=== PATIENT | female | born 1980 | race Hispanic/Latino ===

== ENCOUNTER 2019-01-17 06:45 | Observation (INO) | payer OTHER ==
[2019-01-15 10:49] LABS: BASOPHILS % 0.8 % (0.0-1.0); EOSINOPHILS # (AUTO) 0.2 (0.0-0.4); EOSINOPHILS % 3.8 % (0.0-6.0); HEMATOCRIT 36.4 % (34.2-44.1); HEMOGLOBIN 12.2 g/dL (12.0-16.0); LYMPHOCYTES # (AUTO) 2.1 (1.0-3.2); MEAN CORPUSCULAR HEMOGLOBIN 32.2 pg (28-32); MEAN CORPUSCULAR HGB CONC 33.5 g/dL (31-35); MONOCYTES # (AUTO) 0.5 (0.2-0.8); MONOCYTES % 8.9 % (4.4-11.3); NEUTROPHILS # (AUTO) 2.5 (2.1-6.9); NEUTROPHILS % 47.3 % (38.7-80.0); PLATELET COUNT 252 x10e3/uL (140-360); RED BLOOD COUNT 3.79 x10e6/uL (3.6-5.1); RED CELL DISTRIBUTION WIDTH 11.8 % (11.7-14.4)
[2019-01-15 11:03] LABS: INR 1.05; PROTHROMBIN TIME 14.2 seconds (11.9-14.5)
[2019-01-15 11:04] LABS: PARTIAL THROMBOPLASTIN TIME 30.5 seconds (23.8-35.5)
[2019-01-15 11:08] LABS: ANION GAP 8.7 mmol/L (8-16); BLOOD UREA NITROGEN 11 mg/dL (7-26); BUN/CREATININE RATIO 14 (6-25); CALCIUM 9.4 mg/dL (8.4-10.2); CARBON DIOXIDE 26 mmol/L (22-29); CHLORIDE 104 mmol/L (98-107); CREATININE, SERUM 0.76 mg/dL (0.57-1.11); EST GLOMERULAR FILTRATION RATE > 60 ML/MIN (60-); GLUCOSE 93 mg/dL (74-118); POTASSIUM 3.7 mmol/L (3.5-5.1); SODIUM 135 mmol/L (136-145)
--- NOTE | 2019-01-15 12:00 | Diagnostic Imaging Report ---
EXAM: CHEST 2 VIEWS, PA and lateral DATE: 01/15/2019 Time stamp on exam: 10:34 AM INDICATION: Preoperative for spine surgery COMPARISON: None FINDINGS: LINES/TUBES: None LUNGS: No consolidations or edema. PLEURA: No effusions or pneumothorax. HEART AND MEDIASTINUM: Normal size and contour. BONES AND SOFT TISSUES: No acute findings. Mild thoracic spine scoliosis. IMPRESSION: No acute thoracic abnormality. Signed by: Dr. Teo Hernandez DO on 01/15/2019 11:56 AM
[~2019-01-17] VITALS: Ht 167.6 cm; Wt 62.2 kg
[~2019-01-17 06:45] MED LIST: BACITRACIN 50,000 UNIT VIAL ONE; BACLOFEN10 MG PO; BUPIVACAINE 0.5%/EPI 30 ML SDV INJ ONE; GELATIN SPONGE 12-7MM ONE; THROMBIN FOR SOLN 5,000 UNIT VIAL ONE; TYLENOL WITH C1 EACH PO
--- OUTSIDE RECORDS SUMMARY | 2019-01-17 06:47 | XMS REPORT | Summary of Care ---
Author Author Adelita Frausto Organization Unknown Address Unknown Phone Unavailable Care Team Providers Care Psychiatric Cns Name Role Phone Adelita Frausto Unavailable Unavailable Unavailable Unavailable Functional Status Name Dates Details Functional status health issues are not documented Status: Name Dates Details Cognitive status health issues are not documented Status: Problems Name Dates Details Distal radius fracture, left (813.42, S52.502A) Status: Active Medications Name Dates Details Medications not documented Allergies and Adverse Reactions Name Dates Details Penicillins (Allergy) Status: Active Past Medical History Name Dates Details History of Arthritis (716.90, M19.90) Status: Resolved History of Back pain (724.5, M54.9) Status: Resolved History of Depression (311, F32.9) Status: Resolved Procedures Procedure Dates Details Physical Therapy Date: 17-Oct-2017 Immunization Name Dates Details Immunizations not documented Social History Name Dates Details Unknown if ever smoked Vital Signs Date Test Result Details No Known Vitals to report Results Date Description Value Details Results not documented Plan of Care Name Dates Details Planned Observations Planned Goals not documented Instructions Name Dates Details Instructions not documented Encounters Appointment; FRANCESCO JIMENEZ M.D. Encounter Diagnosis: Problem not documented On: 31-Aug-2017 10:30 Appointment; FRANCESCO JIMENEZ M.D. Encounter Diagnosis: Problem not documented On: 07-Sep-2017 10:45 Appointment; FRANCESCO JIMENEZ M.D. Encounter Diagnosis: Problem not documented On: 17-Oct-2017 12:15
--- OUTSIDE RECORDS SUMMARY | 2019-01-17 06:47 | XMS REPORT ---
[facility] Address Unknown Phone Unavailable Care Team Providers Care Parachute Repairer Name Role Phone SUMAN BRITTON Unavailable Unavailable Payers Payer Name Policy Type Policy Number Effective Date Expiration Date Problems This patient has no known problems. Allergies, Adverse Reactions, Alerts Allergy Name Allergy Type Status Severity Reaction(s) Onset Date Inactive Date Treating Clinician Comments Penicillins DA Active U 2018-12-24 00:00:00 No Known Drug Intolerances DA Active U 2008-05-14 00:00:00 No Known Contrast Allergies DA Active U 2008-05-14 00:00:00 No Known Drug Allergies DA Active U 2008-05-14 00:00:00 No Known Food Allergies DA Active U 2008-05-14 00:00:00 No Known Other Allergies DA Active U 2008-05-14 00:00:00 Medications This patient has no known medications. Results Test Description Test Time Test Comments Text Results Atomic Results Result Comments CHEST 2 VIEWS 2019-01-15 11:55:00 [place] [id number] Patient Name: INDERJIT POSEY MR #: [id number] : 1980 Age/Sex: 38/F Req #: [id number] Adm Physician: Ordered by: SUMAN BRITTON MD Report #: [id number] Location: OR Room/Bed: Procedure: [id number] DX/CHEST 2 VIEWS Exam Date: 01/15/19 Exam Time: 1035 REPORT STATUS: Signed EXAM: CHEST 2 VIEWS, PA and lateral DATE: 01/15/2019 Time sta mp on exam: 10:34 AM INDICATION: Preoperative for spine surgery COMPARISON: None FINDINGS: LINES/TUBES: None LUNGS: No consolidations or edema. PLEURA: No effusions or pneumothorax. HEART AND MEDIASTINUM: Normal size and contour. BONES AND SOFT TISSUES: No acute findings. Mild thoracic spine scoliosis. IMPRESSION: No acute thoracic abnormality. Signed by: Dr. Liseth Hernandez DO on 01/15/2019 11:56 AM Dictated By: LISETH HERNANDEZ DO 1156 Transcribed By: MARIUSZ on 01/15/19 1156 COPY TO: SUMAN BRITTON MD - XR SHOULDER 2 + V LT 2018-12-24 09:19:00 Name: INDERJIT POSEY [facility] : 1980 Age/S:38 /F [address] [facility] Unit#:[id number] Loc: [place] [address] Phys: Romie Arrington MD Dis Date: PHONE #: [phone] Status: REG ER FAX #: [phone] Exam Date: 12/24/2018 Reason: shoulder pain EXAMS: CPT CODE: [id number] XR SHOULDER 2 + [place] [address] HISTORY: Pain. COMPARISON: None available. CERVICAL SPINE SERIES, 3 VIEWS: No acute fracture or dislocation. Vertebral body heights are maintained. Disc spaces are preserved. Mild straightening of the cervical lordosis. Mild torticollis towards the left. Correlate clinically. Uncovertebral joints are preserved. Lateral masses are well marginated. Lung apices are clear. Anatomic alignment. IMPRESSION: No acute fracture or dislocation. Vertebral body heights are maintained. Mild leftward cholecystitis. Correlate clinically. 3 VIEWS OF THE LEFT SHOULDER: No acute fracture or dislocation. Joint spaces are preserved. Scapula, glenoid and coracoid are normal. Soft tissues and bone mineralization are normal. IMPRESSION: No acute fracture or dislocation. Joint spaces are preserved. AP AND LATERAL VIEW OF THE CHEST: No acute infiltrates, effusion or congestion. Cardiac and the mediastinal silhouette are normal. IMPRESSION: No acute infiltrates, effusion or congestion or pneumothorax. at 0919 Reported and signed by: Mahendra Olguin M.D. PAGE 1 Signed Report (CONTINUED) Name: KALPESHINDERJIT [employer] [facility] : 1980 Age/S:38 /F [address] [facility] Unit#:[id number] Loc: [place] [address] Phys: Romie Arrington MD Dis Date: PHONE #: [phone] Status: REG ER FAX #: Exam Date: 12/24/2018 Reason: shoulder pain EXAMS: CPT CODE: [id number] XR SHOULDER 2 + [place] [address] <Continued> CC: Romie Arrington MD Technologist: Germania Gomez Trnscrpt Data: 12/24/2018 (918) [email or web address] Orig Print D/T: S: 12/24/2018 (0922) PAGE 2 Signed Report - XR CHEST 2 V 2018-12-24 09:19:00 Name: KALPESHINDERJIT [employer] [facility] : 1980 Age/S:38 /F [address] [facility] Unit#:[id number] Loc: [place] [address] Phys: Romie Arrington MD Dis Date: PHONE #: [phone] Status: REG ER FAX #: [phone] Exam Date: 12/24/2018 Reason: chest pain EXAMS: CPT CODE: [id number] XR CHEST 2 V 69369 HISTORY: Pain. COMPARISON: None available. CERVICAL SPINE SERIES, 3 VIEWS: No acute fracture or dislocation. Vertebral body heights are maintained. Disc spaces are preserved. Mild straightening of the cervical lordosis. Mild torticollis towards the left. Correlate clinically. Uncovertebral joints are preserved. Lateral masses are well marginated. Lung apices are clear. Anatomic alignment. IMPRESSION: No acute fracture or dislocation. Vertebral body heights are maintained. Mild leftward cholecystitis. Correlate clinically. 3 VIEWS OF THE LEFT SHOULDER: No acute fracture or dislocation. Joint spaces are preserved. Scapula, glenoid and coracoid are normal. Soft tissues and bone mineralization are normal. IMPRESSION: No acute fracture or dislocation. Joint spaces are preserved. AP AND LATERAL VIEW OF THE CHEST: No acute infiltrates, effusion or congestion. Cardiac and the mediastinal silhouette are normal. IMPRESSION: No acute infiltrates, effusion or congestion or pneumothorax. at 0919 Reported and signed by: Mahendra Olguin M.D. PAGE 1 Signed Report (CONTINUED) Name: INDERJIT POSEY [employer] [facility] : 1980 Age/S:38 /F [address] [place] [address] Unit#:[id number] Loc: [place] [address] Phys: Romie Arrington MD Dis Date: PHONE #: [phone] Status: REG ER FAX #: Exam Date: 12/24/2018 Reason: chest pain EXAMS: CPT CODE: [id number] XR CHEST 2 V 43107 <Continued> CC: Romie Arringotn MD Technologist: Germania Gomez Trnscrpt Data: 12/24/2018 (918) [email or web address] Orig Print D/T: S: 12/24/2018 (921) PAGE 2 Signed Report - XR C-SPINE 2-3 VIEWS 2018-12-24 09:19:00 Name: INDERJIT POSEY [employer] [facility] : 1980 Age/S:38 /F [address] [facility] Unit#:[id number] Loc: [place] [address] Phys: Romie Arrington MD Dis Date: PHONE #: [phone] Status: REG ER FAX #: [phone] Exam Date: 12/24/2018 Reason: shoulder pain EXAMS: CPT CODE: [id number] XR C-SPINE 2-3 VIEWS 45954 HISTORY: Pain. COMPARISON: None available. CERVICAL SPINE SERIES, 3 VIEWS: No acute fracture or dislocation. Vertebral body heights are maintained. Disc spaces are preserved. Mild straightening of the cervical lordosis. Mild torticollis towards the left. Correlate clinically. Uncovertebral joints are preserved. Lateral masses are well marginated. Lung apices are clear. Anatomic alignment. IMPRESSION: No acute fracture or dislocation. Vertebral body heights are maintained. Mild leftward cholecystitis. Correlate clinically. 3 VIEWS OF THE LEFT SHOULDER: No acute fracture or dislocation. Joint spaces are preserved. Scapula, glenoid and coracoid are normal. Soft tissues and bone mineralization are normal. IMPRESSION: No acute fracture or dislocation. Joint spaces are preserved. AP AND LATERAL VIEW OF THE CHEST: No acute infiltrates, effusion or congestion. Cardiac and the mediastinal silhouette are normal. IMPRESSION: No acute infiltrates, effusion or congestion or pneumothorax. at 0919 Reported and signed by: Mahendra Olguin M.D. PAGE 1 Signed Report (CONTINUED) Name: INDERJIT POSEY [facility] : 1980 Age/S:38 /F [address] [facility] Unit#:[id number] Loc: [place] [address] Phys: Romie Arrington MD Dis Date: PHONE #: [phone] Status: REG ER FAX #: Exam Date: 12/24/2018 Reason: shoulder pain EXAMS: CPT CODE: [id number] XR C-SPINE 2-3 VIEWS 87723 <Continued> CC: Romie Arrington MD Technologist: Germania Gomez [facility] Data: 12/24/2018 (0919) [email or web address] Orig Print D/T: S: 12/24/2018 (0922) PAGE 2 Signed Report
[2019-01-17] MEDS ORDERED: VANCOMYCIN 1GM/NS 250 ML 250 ML ONE (07:08)
[2019-01-17] MEDS ORDERED: LIDOCAINE HCL (LTA) 4 ML SOLN ONE (07:20)
[2019-01-17] MEDS ORDERED: IBUPROFEN 250 ML IV ONE (07:20)
[2019-01-17] MEDS ORDERED: ACETAMINOPHEN 1000 MG/100 ML 100 ML IV ONE (07:20)
[2019-01-17] MEDS ORDERED: ZOLPIDEM TARTRATE 5 MG TAB PO PRN (10:15)
[2019-01-17] MEDS ORDERED: PROMETHAZINE HCL (IM) 25 MG/ML VIAL IM PRN (10:15)
[2019-01-17] MEDS ORDERED: MAGNESIUM/ALUMINUM/SIMETHICONE 30 ML UDC PO PRN (10:15)
[2019-01-17] MEDS ORDERED: ACETAMINOPHEN 325 MG TAB PO PRN ×2 (10:15→13:00)
[2019-01-17] MEDS ORDERED: MORPHINE SULFATE 5 MG/ML VIAL IM PRN (10:15)
[2019-01-17] MEDS ORDERED: VANCOMYCIN 1GM/NS 250 ML 250 ML IV SCH (10:15)
[2019-01-17] MEDS ORDERED: ONDANSETRON HCL INJ 2MG/ML 2ML 2 MG/ML VIAL IV PRN (10:15)
[2019-01-17] MEDS ORDERED: CEPACOL SORE THROAT LOZENGES PO PRN (10:15)
[2019-01-17] MEDS ORDERED: OXYCODONE/ACETAMINOPHEN 5-325 1 EACH TABLET PO PRN (10:15)
[2019-01-17] MEDS ORDERED: HYDROMORPHONE 2MG/ML 2 MG/ML ML IV PRN ×2 (10:15→13:00)
[2019-01-17] MEDS ORDERED: FENTANYL CITRATE/PF 100MCG/2 ML INJ ONE ×2 (10:24→19:21)
[2019-01-17] MEDS ORDERED: MORPHINE SULFATE INJ 4 MG/ML INJ 1ML ONE (10:36)
[2019-01-17] MEDS ORDERED: DIPHENHYDRAMINE HCL INJ 50 MG/ML VIAL ONE (10:44)
[2019-01-17 12:50] VITALS: BP 119/66
--- NOTE | 2019-01-17 12:50 | NUR ---
Patient arrived from PACU, sleepy but easily arouses to verbal stimuli. Patient ambulated to bathroom and back to bed with standby assistance only. Vital signs stable. Patient instructed to call for assistance as needed and verbalized understanding. Call winkler within
[2019-01-17 13:00] VITALS: BP 114/73
[2019-01-17 13:04] VITALS: BP 119/66
[2019-01-17] MEDS: LACTATED RINGER'S 1,000 ML IV SCH ×2 (13:39→16:50)
[2019-01-17] MEDS ORDERED: SEVOFLURANE INHAL SOLN 250 ML PEN BTL ONE (13:44)
[2019-01-17] MEDS ORDERED: DEXAMETHASONE SOD PHOS INJ 4 MG/ML VIAL ONE (13:44)
[2019-01-17] MEDS ORDERED: LIDOCAINE HCL 2% JELLY 5 ML TUBE ONE (13:44)
[2019-01-17] MEDS ORDERED: LIDOCAINE HCL 2% LOCAL INJ 5 ML SDV VIAL INJ ONE (13:44)
[2019-01-17] MEDS ORDERED: GLYCOPYRROLATE INJ 1MG/ 5 ML SYR ONE (13:44)
[2019-01-17] MEDS ORDERED: ONDANSETRON HCL INJ 2MG/ML 2ML 2 MG/ML VIAL ONE (13:44)
[2019-01-17] MEDS ORDERED: ROCURONIUM BROMIDE 10 MG/ML 5ML VIAL ONE (13:44)
[2019-01-17] MEDS ORDERED: PROPOFOL IV EMULSION 10 MG/ML 20 ML VIAL ONE (13:44)
[2019-01-17] MEDS ORDERED: NEOSTIGMINE 5 MG/5ML SYR ONE (13:44)
[2019-01-17 16:00] VITALS: BP 114/63
--- NOTE | 2019-01-17 16:14 | NUR ---
SOCIAL WORK INITIAL ASSESSMENT [employer] Security Analyst to bedside to discuss plan of care with patient/family. CM/SW role and care transitions discussed. Anticipated discharge plan discussed along with duration of care. CM/SW discussed patients right to make decisions in care. CM/SW work hours given. 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 Referral Needs: NONE Education Needs: NONE IMM/BOTELLO given and signed (if applicable): NA Goal for discharge: RETURN HOME INDEPENDENTLY CM/SW left business card at the bedside with contact information. Name and number was also written on the patients whiteboard. Patient verbalized understanding of discussion. CM will follow-up with ongoing discharge and transition of care needs.
--- NOTE | 2019-01-17 17:29 | Operative Report ---
DATE OF PROCEDURE: 01/17/2019 SURGEON: Mayank Mendez MD PREOPERATIVE DIAGNOSIS: C6-7 disk herniation with radiculopathy, M50.123. POSTOPERATIVE DIAGNOSIS: C6-7 disk herniation with radiculopathy, M50.123. PROCEDURE: 1. C6-7 anterior cervical diskectomy and allograft fusion, 46481. 2. Preparation of MTF corticocancellous allograft, 65013. 3. C6-7 anterior cervical plating with Synthes ZPN plate, 35090. ANESTHESIA: General. INDICATIONS: The patient is a 38-year-old woman, who presents with C6-7 disk herniation with left C7 radiculopathy. She was taken to the operating room for anterior cervical decompression and fusion. PROCEDURE IN DETAIL: After induction of general anesthesia, the patient was placed on the operating table in supine position. The right side of neck was prepped and draped in sterile fashion. The fluoroscopic C-arm was positioned in cross-table lateral orientation. A small transverse incision was created on the right side of neck superimposed on the C6-7 disk space as determined by fluoroscopy. The platysma was divided in line with the incision. A subplatysmal dissection was carried out and avascular plane of dissection was developed medially to sternocleidomastoid muscle and was followed medial to the carotid sheath to the anterior border of the cervical spine. The deep cervical fascia was opened and esophagus was retracted to the left. The attachments of longus colli muscles to the anterolateral aspects of vertebral bodies of C6 and C7 were divided. The anterior longitudinal ligament was resected. Marion posts were inserted into C6 and C7. The Marion distractor was used to distract the disk space. The anterior annulus of disk was incised with a #11 blade. The contents of the disk were thoroughly evacuated with angled curettes and pituitary rongeurs. The posterior osteophytes were meticulously drilled with a 2 mm cutting bur on a high-speed drill until they were completely removed. The posterior annulus of the disk, herniated disk material, and the posterior longitudinal ligament were resected layer by layer until the dura was fully exposed and decompressed. The medial aspects of the uncinate processes were resected bilaterally with particular attention given to the left side. A very large disk herniation within the left C7 neural foramen was retrieved with a micro ball probe and grasped with a micropituitary rongeur and carefully delivered out. This completely decompressed the C7 nerve root. Meticulous hemostasis was achieved. The endplates were prepared for fusion. The disk space was sized and found to be 8 mm in height. A piece of MTF corticocancellous allograft measuring 8 mm in thickness was selected and prepared in saline and loaded onto a corresponding Synthes ZPN plate. The construct was inserted into the C6-7 disk space under distraction and fluoroscopic guidance and tamped in place until its anterior margin was flushed with anterior margin of the vertebral bodies. The plate was screwed to the C6 and C7 with two pairs of 14 mm screws. All screws were locked. An excellent construct was obtained. The wound was copiously irrigated with bacitracin solution. Meticulous hemostasis was secured. Retractor was removed. The platysma was closed with 3-0 Vicryl sutures. The skin was closed with 4-0 Monocryl sutures in subcuticular fashion. Steri-Strips and dressing were applied. The patient was awakened, extubated, and taken to postanesthesia care unit in stable condition. No intraoperative complications were encountered. Estimated blood loss was 10 mL. Mayank Mendez MD PP/YOSEF /[id number]
[2019-01-17] MEDS: CARISOPRODOL 350 MG TAB PO PRN (19:06)
[2019-01-17] MEDS: OXYCODONE/ACETAMINOPHEN 5-325 1 EACH TABLET PO PRN (19:06)
--- NOTE | 2019-01-17 19:16 | NUR ---
Report receive and walking rounds complete. Pt resting in bed and in no apparent distress. All safety measures ensured.
[2019-01-17] MEDS ORDERED: MIDAZOLAM HCL 2 MG/2 ML VIAL ONE (19:21)
[2019-01-17 20:00] VITALS: BP 103/65
[2019-01-17] MEDS: VANCOMYCIN 1GM/NS 250 ML 250 ML IV SCH (20:42)
[2019-01-18] VITALS: BP 103/64
[2019-01-18] MEDS: CARISOPRODOL 350 MG TAB PO PRN (01:30)
[2019-01-18] MEDS: OXYCODONE/ACETAMINOPHEN 5-325 1 EACH TABLET PO PRN (01:30)
[2019-01-18 01:57] VITALS: BP 103/65
[2019-01-18] MEDS: LACTATED RINGER'S 1,000 ML IV SCH (02:52)
[2019-01-18 04:00] VITALS: BP 116/57
--- NOTE | 2019-01-18 06:44 | Diagnostic Imaging Report ---
Cervical Spine, 2 views HISTORY: Status post surgery. COMPARISON: None. FINDINGS: On the lateral view, the cervical spine is visualized from the skull base to C7. Straightening of the normal cervical lordosis may be secondary to muscle spasm or positioning. No acute displaced fracture is identified involving the visualized cervical spine. Status post anterior fusion of C6-7 with plate and screw construct. Hardware is intact. IMPRESSION: Status post anterior fusion of C6-7 with plate and screw construct with intact hardware. Signed by: Dr. Stefan Espinoza M.D. on 01/18/2019 6:41 AM
[2019-01-18 08:07] VITALS: BP 116/66
[2019-01-18] MEDS: VANCOMYCIN 1GM/NS 250 ML 250 ML IV SCH (08:21)
== END 2019-01-18 11:10 | disposition home or self-care (01) ==
LOC: OR 06:45 → PACU V 10:13 → IMCU 12:43
PROVIDERS: ADMIT Neurological Surgery; ATTEND Neurological Surgery
DX: M50.123 Cervical disc disorder at C6-C7 level with radiculopathy (principal); Z01.810 Encounter for preprocedural cardiovascular examination; Z01.812 Encounter for preprocedural laboratory examination; Z01.811 Encounter for preprocedural respiratory examination; Z88.0 Allergy status to penicillin; Z87.891 Personal history of nicotine dependence
CPT/HCPCS: 20931; 22551; 22845; 36415; 71046; 72040; 80048; 81025; 85025; 85610; 85730; 86850; 86900; 88304; 93005; C1713 ×2; C9359; G0378 ×2; J0131; J1100; J1200; J2001 ×2; J2250; J2270; J2405; J2704; J3370 ×2; J3490; 77003

== ENCOUNTER → 2019-02-12 | Outpatient (CLI) | payer OTHER ==
[~2019-02-12] MED LIST changes: -BACITRACIN 50,000 UNIT VIAL ONE; -BUPIVACAINE 0.5%/EPI 30 ML SDV INJ ONE; -GELATIN SPONGE 12-7MM ONE; -THROMBIN FOR SOLN 5,000 UNIT VIAL ONE
--- NOTE | 2019-02-12 12:39 | Diagnostic Imaging Report ---
Cervical Spine, 4 views HISTORY: Status post surgery. COMPARISON: 01/18/2019 FINDINGS: On the lateral view, the cervical spine is visualized from the skull base to T1. Straightening of the normal cervical lordosis may be secondary to muscle spasm or positioning. No acute displaced fracture is identified involving the visualized cervical spine. There is mild disc space narrowing at C5-C6. Status post anterior fusion of C6-7 with a disc spacer and screws present. Hardware is intact. No subluxation with flexion and extension. IMPRESSION: Status post anterior fusion of C6-7 with intact hardware and disc spacer. Signed by: Dr. Teo Hernandez DO on 02/12/2019 12:35 PM
== END ==
LOC: RAD 10:22
PROVIDERS: ATTEND Neurological Surgery
DX: M50.20 Other cervical disc displacement, unspecified cervical region (principal); Z98.1 Arthrodesis status
CPT/HCPCS: 72050